=== PATIENT | male | born 1945 | race Caucasian/White ===

== ENCOUNTER → 2018-01-28 | Outpatient (CLI) | payer MEDICARE ==
[2018-01-28 18:43] LABS: Albumin 4.4 g/dL (3.5-5.0); Calcium 9.6 mg/dL (8.4-10.2); Potassium 4.9 mmol/L (3.5-5.1); Total Bilirubin 0.8 mg/dL (0.2-1.3); Total Protein 7.5 g/dL (6.3-8.2)
[2018-01-28 18:54] LABS: Basophils # (A) 0.1 k/uL (0-0.2); Basophils % (A) 1 %; Eosinophils # (A) 0.1 k/uL (0-0.7); Eosinophils % (A) 2 %; HCT 47.4 % (39.0-53.0); HGB 16.5 gm/dL (13.0-17.5); Lymphocytes # (A) 1.1 k/uL (1.0-4.8); Lymphocytes % (A) 18 %; MCH 32.8 pg (25.0-35.0); MCHC 34.8 g/dL (31.0-37.0); MCV 94.5 fL (80.0-100.0); Monocytes # (A) 0.4 k/uL (0-1.0); Monocytes % (A) 7 %; Neutrophils # (A) 4.2 k/uL (1.3-7.7); Neutrophils % (A) 70 %; Platelet Count 238 k/uL (150-450); RBC 5.02 m/uL (4.30-5.90)
[2018-01-28 19:08] LABS: PSA Annual Screen 2.34 ng/mL (0.00-4.00)
== END | disposition home or self-care (01) ==
LOC: MMGSC 14:35
PROVIDERS: ATTEND Family Medicine
DX: Z00.00 Encounter for general adult medical examination without abnormal findings (principal); Z12.5 Encounter for screening for malignant neoplasm of prostate
CPT/HCPCS: 84439; 80061; 80053; 84443; 85025; 36415; G0103

== ENCOUNTER → 2020-08-10 | Outpatient (CLI) | payer MEDICARE ==
--- NOTE | 2020-08-10 10:16 | CT ---
EXAMINATION TYPE: CT heart w calcium score DATE OF EXAM: 08/10/2020 COMPARISON: None HISTORY: Screening for cardiovascular disorder. 213.9 CT DLP: 91.4 mGycm Automated exposure control for dose reduction was used. CT CALCIUM SCORING Coronary calcium is a marker for plaque (fatty deposits) in a blood vessel or atherosclerosis (harden ing of the arteries). The presence and amount of calcium detected in a coronary artery by the CT sca n, indicates the presence and amount of atherosclerotic plaque. These calcium deposits appear years before the development of heart disease symptoms such as chest pain and shortness of breath. A calcium score is computed for each of the coronary arteries based upon the volume and density of th e calcium deposits. This can be referred to as your calcified plaque burden. It does not correspond directly to the percentage of narrowing in the artery but does correlate with the severity of the un derlying coronary atherosclerosis. PROCEDURE TECHNIQUE - Prospective Gating was used. Slice thickness: 3mm. Density threshold (HU): 130, Pixel threshold: 3, Algorithm: discrete. RESULTS Region: LM Calcium Score ([place]): 0 Region: RCA Calcium Score ([place]): 4.07 Region: LAD Calcium Score ([place]): 30.51 Region: CX Calcium Score ([place]): 0 Region: PDA Calcium Score ([place]): 0 Total: Calcium Score ([place]): 34.58 TOTAL CALCIUM SCORE: 34.58 Heart size is mildly prominent. Ascending aorta measures 4.3 cm compatible with mild aneurysmal dilat ion. Lung nieto are clear. IMPRESSION: Calcium Score: 34.58 Implication: Mild atherosclerotic plaque Risk of Coronary Artery Disease: Mild coronary artery narrowings likely CALCIUM SCORE IMPLICATION RISK OF C ORONARY ARTERY DISEASE 0 No identifiable plaque Very low, generally less than 5% 1-10 Minimal identifiable plaque Very unlikely, less than 10% 11-100 Definite, at least mild atherosclerotic plaque Mild or m inimal coronary narrowings likely 101-400 Definite, at least moderate atherosclerotic plaque Mild coronary ar vasiliy disease highly likely, significant narrowing possible 401 or Higher Extensive atherosclerotic plaque High lik elihood of at least one significant coronary narrowing
== END | disposition home or self-care (01) ==
LOC: RADCTMAIN 09:10
PROVIDERS: ATTEND Nurse Practitioner Family
DX: I25.10 Atherosclerotic heart disease of native coronary artery without angina pectoris (principal)
CPT/HCPCS: 75571

== ENCOUNTER → 2023-12-18 | Outpatient (CLI) | payer MEDICARE ==
--- NOTE | 2024-01-03 17:05 | MR ---
EXAMINATION TYPE: MR shoulder LT wo con DATE OF EXAM: 12/18/2023 COMPARISON: Outside radiograph 11/19/2023 HISTORY: 78-year-old male M2 5.512, Left shoulder pain, x2-3 months TECHNIQUE: Multiplanar, multisequence imaging of the left shoulder is performed without contrast. FINDINGS: There is abnormal signal along the long head biceps tendon with areas of interstitial or sp lit tearing. Moderate fluid along the bicipital groove. Extensive heterogeneity of the subscapularis tendon torn at its insertion. Moderate to severe degenerative change at the acromioclavicular joint with subchondral marrow signal changes. Inferior spurring impresses upon to the myotendinous junction of the supraspinatus tendon. T here is trace fluid within the subacromial/subdeltoid bursa. There is some bony hypertrophy in the region of the coracoclavicular ligament suggesting prior sprain . Some bursal sided fraying of the supraspinatus tendon. There may be a tiny, nondisplaced bursal sided tear of the far anterior supraspinatus tendon insertion measuring 6 mm long and 8 mm AP, coronal navi ge 10 and sagittal image 8. No high-grade partial-thickness or full-thickness tear is identified. The infraspinous this tendon also appears intact. No atrophy of the rotator cuff musculature. Abnormal signal throughout the glenoid labrum extending anteriorly, superiorly, and posteriorly sugge sting extensive glenoid labral tear. There are areas of moderate irregular cartilage loss throughout the glenohumeral joint with marginal spurring and areas of subchondral cystic change. Small glenohumeral joint effusion. No Hill-Sachs deformity or os acromiale. No suspicious bone marrow replacement. IMPRESSION: 1. Diffuse rotator cuff tendinosis. At least half of the subscapularis tendon insertion is torn. 2. In addition, there is bursal sided fraying of the supraspinatus tendon and possibly a small 6 x 8 mm bursal sided tear of the anterior supraspinatus tendon insertion. No high-grade or full-thickness or full-thickness tear of either supraspinatus or infraspinatus tendons. 3. Moderate glenohumeral joint OA with a diffusely degenerative and torn glenoid labrum. 4. Severe AC joint OA. 5. Diffuse long head biceps tendinosis and tenosynovitis along with multiple interstitial or split te ars.
== END | disposition home or self-care (01) ==
LOC: RADMRIMAIN 12:54
PROVIDERS: ATTEND Orthopaedic Surgery
DX: M19.012 Primary osteoarthritis, left shoulder (principal); M67.814 Other specified disorders of tendon, left shoulder; M65.9 Synovitis and tenosynovitis, unspecified; M24.822 Other specific joint derangements of left elbow, not elsewhere classified; M75.102 Unspecified rotator cuff tear or rupture of left shoulder, not specified as traumatic